=== PATIENT | male | born 1985 | race Caucasian/White ===

== ENCOUNTER 2025-01-31 09:28 | Emergency (ER) | payer SELFPAY ==
[~2025-01-31] VITALS: Ht 165.1 cm; Wt 74.8 kg
[2025-01-31 09:37] VITALS: TEMP 37.2; O2SAT 99
[2025-01-31 09:38] VITALS: O2SAT 98
[2025-01-31] MEDS ORDERED: IBUP-2028 MT (10:52)
[2025-01-31 10:53] VITALS: BP 146/95; PULSE 75; RESP 16
[2025-01-31] MEDS: KETOROLAC 30MG/ML VIAL IM ONE (10:53)
== END 2025-01-31 11:18 | disposition home or self-care (01) ==
LOC: ER 09:28
DX: M25.512 Pain in left shoulder (principal); M25.511 Pain in right shoulder
CPT/HCPCS: 71045; 96372; 99283; J1885; Z7610